=== PATIENT | female | born 1945 | race Caucasian/White ===

== ENCOUNTER 2023-09-25 19:47 | Emergency (ER) | payer MEDICARE, BC, SELFPAY ==
[2023-09-25 19:51] VITALS: BP 130/68
[2023-09-25 20:11] LABS: % Basophils 0.6 % (0-2); % Eosinophils 1.2 % (0-6); % Immature Granulocytes 0.3 % (0-0.5); % Lymphocytes 33.4 % (20.5-51.1); % Monocytes 10.9 % (1.7-9.3); % Neutrophils 53.6 % (42.2-75.2); Absolute Eosinophils 0.1 10^3/uL (0-0.7); Absolute Lymphocytes 2.3 10^3/uL (1.2-3.4); Absolute Monocytes 0.7 10^3/uL (0.1-0.6); Absolute Neutrophils 3.7 10^3/uL (1.4-6.5); Hematocrit 39.8 % (37.0-47.0); Hemoglobin 13.8 g/dL (12.0-16.0); Mean Corp Hgb Conc. 34.7 g/dL (33.0-37.0); Mean Corpuscular Hgb 30.3 pg (27.0-31.0); Mean Corpuscular Volume 87.3 fL (81.0-99.0); Mean Platelet Volume 9.7 fL (7.4-10.4); Nucleated Red Blood Cells % 0 %; Platelet Count 251 10^3/uL (130-400); Red Blood Cell Count 4.56 10^6/uL (4.20-5.40); Red Cell Dist. Width 12.8 % (11.5-14.5); Urine Albumin Trace (Neg - Trace); Urine Bilirubin Negative (Negative); Urine Character Clear (Clear); Urine Color Yellow; Urine Glucose Negative (Negative); Urine Ketone Trace (Negative); Urine Leukocyte 2+ (Negative); Urine Nitrite Positive (Negative); Urine Occult Blood 3+ (Negative); Urine Specific Gravity 1.025 (<1.030); Urine Urobilinogen Negative (Neg - 1+); White Blood Cell Count 6.8 10^3/uL (4.8-10.8)
[2023-09-25 20:18] LABS: Urine Bacteria Many (Negative); Urine Red Blood Cell 0-2 /HPF (0-2)
[2023-09-25 20:37] LABS: ALT (SGPT) 12 U/L (0-35); AST (SGOT) 25 U/L (14-36); Albumin 4.6 g/dl (3.5-5.0); Alkaline Phosphatase 35 U/L (38-126); Blood Urea Nitrogen 24 mg/dl (7-17); Carbon Dioxide 25 mmol/L (22-30); Chloride 103 mmol/L (98-107); Glucose 102 mg/dl (70-99); Potassium 4.5 mmol/L (3.5-5.1); Sodium 137 mmol/L (135-145); Total Bilirubin 2.2 mg/dl (0.2-1.3); Total Protein 7.4 g/dl (6.3-8.2); eGFR 46.33
[2023-09-25 23:06] VITALS: BMI 25.7
--- NOTE | 2023-09-25 23:15 | ED.GENMED ---
History of Present Illness
General
Chief Complaint: Change in Mental Status
Source: patient and family
Time Seen by Provider: 09/25/23 23:08
Travel History
Have you had any contact with someone who has COVID-19?: No
Do you have any symptoms of coronavirus? Fever > 100 degrees, chills, cough, shortness of breath, sore throat, loss of taste or smell, muscle aches, or headache?: No
History of Present Illness
History of Present Illness:
78-year-old female with past medical history of dementia presenting to the emergency department with family who reports that since Monday last week patient has had intermittent episodes of confusion, intermittently has not recognized her
with whom she lives. Family states that they attempted to get a urinalysis done as an outpatient but were unable to do so and were recommended by patient's living facility ([facility]) to come to the emergency department to be further evaluated.
Patient reports she has no concerns at this time. Family states they are most concerned for urinary tract infection given patient's history of similar.
Past History
Past History
ED Past Medical History: Psychiatric and Other (Dementia)
ED Past Surgical History: Other (Thyroid)
Social History
Tobacco: Non-smoker
Alcohol: None
Drug: None
Personal:
Living: assisted living
Review of Systems
Review of Systems
All Other Systems: ROS reviewed and negative except as documented in HPI and ROS
Phy Exam
Physical Exam
Physical Exam:
GENERAL: Alert , in no apparent distress
EYE: conjunctiva clear
NECK: Supple
ENT: o/p clr, mmm.
CARDIAC: Regular rate and rhythm
LUNGS: Clear breath sounds bilaterally, no acute respiratory distress, no wheezes/rales/rhonchi
Abdomen: Soft, nontender, nondistended
NEUROLOGICAL: Alert and oriented to self and place but not year, ambulates with steady gait
SKIN: Warm and dry, skin intact.
MUSCULOSKELETAL: well perfused.
PSYCH: Normal and appropriate interaction.
Scores
Heart Failure Risk
Heart Failure Risk Score: Not Applicable
Heart Score for Chest Pain Patients
STEMI patient?: Not applicable
Withdrawal Assessment of Alcohol
Withdrawal Assessment Completed?: Not applicable
Course
Orders/Labs/Results
Orders:
Orders
09/25/23 19:56
CT Head W/o Iv Contrast Urgent
Comment:
Reason For Exam: altered mental status
09/25/23 20:03
Complete Blood Count/With Diff Urgent
Comprehensive Metabolic Panel Urgent
Urinalysis Reflex To Culture Urgent
Date Specimen was Collected: 09/25/23
Time Specimen was Collected: 19:57
Urine Microscopic Reflex Cult Urgent
Urine Culture Urgent
TWAN Source: U
Specimen Description:
Date Specimen was Collected: 09/25/23
Time Specimen was Collected: 19:57
09/25/23 23:50
Cefuroxime Axetil [Ceftin] 500 mg PO NOW STA
Abnormal Lab Results
09/25/23
20:03
Absolute Monos (auto) 0.7 H 10^3/uL
(0.1-0.6)
Monocytes % 10.9 H %
(1.7-9.3)
BUN 24 H mg/dl
(7-17)
Creatinine 1.2 H mg/dL
(0.6-1.0)
Glucose 102 H mg/dl
(70-99)
Total Bilirubin 2.2 H mg/dl
(0.2-1.3)
Alkaline Phosphatase 35 L U/L
(38-126)
Urine Ketones Trace A
(Negative)
Ur Occult Blood Reflex 3+ A
(Negative)
Urine Nitrite (Reflex) Positive A
(Negative)
Leukocyte Esterase Rfl 2+ A
(Negative)
Urine WBC (Reflex) 11-15 A /HPF
(0-5)
Urine Bacteria (Reflex) Many A
(Negative)
09/25/23 20:03
09/25/23 20:03
Vital Signs
Initial and Last Documented VS:
Initial Vital Signs
Temp Pulse Resp BP Pulse Ox
98.2 F 95 18 130/68 97
09/25/23 19:51 09/25/23 19:51 09/25/23 19:51 09/25/23 19:51 09/25/23 19:51
Last Documented Vital Signs
Temp Pulse Resp BP Pulse Ox
98.2 F 95 18 130/68 97
09/25/23 19:51 09/25/23 19:51 09/25/23 19:51 09/25/23 19:51 09/25/23 19:51
MDM/Problems Addressed
Differential Diagnosis Includes:
Progression of dementia, urinary tract infection, electrolyte
MDM/Problems Addressed:
78-year-old female present emergency department for evaluation of intermittent confusion and reported change in mental status. Patient appears to be at her baseline at present time per family and she is in no acute distress. Vital signs
unremarkable. Labs and urine have been ordered by triage and patient does have nitrite positive urine, 2+ leukocytes and 11-15 WBCs. There is mild CKD. Will treat patient with oral antibiotics. No previous urine cultures done at this facility.
Will prescribe cefuroxime twice daily x 10 days. Patient will follow-up with primary care provider.
Chronic conditions affecting care: Neurological disorder
Acute Exacerbation and/or Progression of Chronic Illness: Neurological disorder
*Pulse Oximetry
Patient hypoxic: no
*Critical Care Note
Total Time (30-74mins, 75-104mins- exclusive of procedures): Not Applicable
ED Attending Note
-
Portions of this chart may have been created with voice recognition software.� Occasional wrong word or��sound alike� substitutions may have occurred due to the inherent limitations of voice recognition software.
Discharge Plan
Departure
Patient Disposition: Home (Routine Discharge)
Date of Disposition: 09/25/23
Time of Disposition: 23:15
Patient with high blood pressure during this ER visit?: No
Discharge Problem:
Acute UTI (urinary tract infection)
Instructions: Urinary Tract Infection, Adult (DC)
Prescriptions:
New
cefuroxime axetil 500 mg tablet
500 mg PO BID Qty: 19 0RF
Referrals:
Seamus Apple MD [Family Provider] -
Interventions
Interventions:
*Risk Screen - Suicide Last Done: 09/25/23 19:51
*General Assessment Last Done: 09/25/23 19:51
*Neglect/Abuse Screening Last Done: 09/25/23 19:51
ED- Fall Risk Assessment Last Done: 09/25/23 23:06
ED- Neurological Assessment Last Done: 09/25/23 23:06
ED Swallowing Screen Last Done: 09/25/23 23:06
Discharge Date and Time
Print Language: AZERI
[2023-09-26] MEDS: CEFTIN 500 MG PO (00:20)
[2023-09-26 00:25] VITALS: BP 122/72
== END 2023-09-26 00:25 | disposition home or self-care (01) ==
LOC: EMR 19:47
PROVIDERS: EMERGENCY PHYSICIAN Student in an Organized Health Care Education/Training Program; FAMILY PHYSICIAN Family Medicine
DX: N39.0 Urinary tract infection, site not specified (principal); F03.90 Unspecified dementia, unspecified severity, without behavioral disturbance, psychotic disturbance, mood disturbance, and anxiety
CPT/HCPCS: 99285; 70450; 80053; 81003; 81015; 85025; 87086; 87088; 87186

== ENCOUNTER 2023-11-05 18:06 | Emergency (ER) | payer MEDICARE, BC, SELFPAY ==
[2023-11-05 18:12] VITALS: BP 120/75
[2023-11-05 18:14] VITALS: BP 120/75
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
[2023-11-05 19:00] VITALS: BP 126/66
[2023-11-05 20:08] LABS: Urine Albumin Negative (Neg - Trace); Urine Bilirubin Negative (Negative); Urine Character Slightly Cloudy (Clear); Urine Color Yellow; Urine Glucose Negative (Negative); Urine Ketone Trace (Negative); Urine Leukocyte Negative (Negative); Urine Nitrite Negative (Negative); Urine Occult Blood 2+ (Negative); Urine Specific Gravity 1.025 (<1.030); Urine Urobilinogen Negative (Neg - 1+)
[2023-11-05 20:21] LABS: Urine Squamous Cell 0-2 /LPF (Few)
[2023-11-05 20:22] LABS: Urine Bacteria Few (Negative); Urine Calcium Oxalate Crystals Present
[2023-11-05 20:23] LABS: Urine White Cell 0-2 /HPF (0-5)
== END 2023-11-05 20:57 | disposition home or self-care (01) ==
LOC: EMR 18:06
PROVIDERS: Physician Assistant; EMERGENCY PHYSICIAN Student in an Organized Health Care Education/Training Program
DX: R31.29 Other microscopic hematuria (principal); F03.93 Unspecified dementia, unspecified severity, with mood disturbance; Z63.0 Problems in relationship with spouse or partner
CPT/HCPCS: 99282; 81003; 81015

== ENCOUNTER → 2023-11-16 10:11 | Outpatient (REF) | payer MEDICARE, BC, SELFPAY ==
[2023-11-16 10:47] LABS: % Basophils 0.5 % (0-2); % Eosinophils 2.1 % (0-6); % Immature Granulocytes 0.2 % (0-0.5); % Lymphocytes 32.5 % (20.5-51.1); % Monocytes 9.7 % (1.7-9.3); Absolute Eosinophils 0.1 10^3/uL (0-0.7); Absolute Lymphocytes 1.9 10^3/uL (1.2-3.4); Absolute Monocytes 0.6 10^3/uL (0.1-0.6); Absolute Neutrophils 3.2 10^3/uL (1.4-6.5); Hematocrit 38.7 % (37.0-47.0); Hemoglobin 13.2 g/dL (12.0-16.0); Mean Corp Hgb Conc. 34.1 g/dL (33.0-37.0); Mean Corpuscular Hgb 30.5 pg (27.0-31.0); Mean Corpuscular Volume 89.4 fL (81.0-99.0); Mean Platelet Volume 10.4 fL (7.4-10.4); Nucleated Red Blood Cells % 0 %; Platelet Count 215 10^3/uL (130-400); Red Blood Cell Count 4.33 10^6/uL (4.20-5.40); Red Cell Dist. Width 12.6 % (11.5-14.5); White Blood Cell Count 5.8 10^3/uL (4.8-10.8)
[2023-11-16 10:49] LABS: Urine Albumin Negative (Neg - Trace); Urine Bilirubin Negative (Negative); Urine Character Clear (Clear); Urine Color Yellow; Urine Glucose Negative (Negative); Urine Ketone Negative (Negative); Urine Leukocyte Trace (Negative); Urine Nitrite Negative (Negative); Urine Occult Blood 2+ (Negative); Urine Specific Gravity 1.025 (<1.030); Urine Urobilinogen Negative (Neg - 1+)
[2023-11-16 11:28] LABS: Urine Mucus Few
[2023-11-16 11:29] LABS: Urine Calcium Oxalate Crystals Seen; Urine Red Blood Cell 0-2 /HPF (0-2)
[2023-11-16 11:53] LABS: ALT (SGPT) 10 U/L (0-35); AST (SGOT) 21 U/L (14-36); Albumin 3.8 g/dl (3.5-5.0); Alkaline Phosphatase 32 U/L (38-126); Blood Urea Nitrogen 18 mg/dl (7-17); Calcium 9.2 mg/dl (8.4-10.2); Carbon Dioxide 30 mmol/L (22-30); Chloride 104 mmol/L (98-107); Glucose 93 mg/dl (70-99); HDL Cholesterol 55 mg/dl; LDL Cholesterol, Calculated 111 mg/dl; Potassium 4.4 mmol/L (3.5-5.1); Sodium 141 mmol/L (135-145); Total Bilirubin 1.1 mg/dl (0.2-1.3); Total Cholesterol 184 mg/dl (50-199); Total Protein 6.4 g/dl (6.3-8.2); Triglyceride 91 mg/dl (10-149); Very Low Density Lipoprotein 18 mg/dl (0-30); eGFR > 60.00
[2023-11-16 12:11] LABS: Free T4 0.74 ng/dl (0.78-2.19); Vitamin D, 25-OH*** 44.2 ng/mL (30-80)
[2023-11-16 12:24] LABS: TSH 2.22 uIU/ml (0.47-4.68)
[2023-11-16 13:39] LABS: Glycohemoglobin (HgbA1c) 5.9 % (4.0-5.6)
== END ==
LOC: OLABMERCHI 10:11
PROVIDERS: ATTENDING PHYSICIAN Nurse Practitioner Gerontology; FAMILY PHYSICIAN Hospitalist
DX: E55.9 Vitamin D deficiency, unspecified (principal); N39.0 Urinary tract infection, site not specified; E03.9 Hypothyroidism, unspecified; E11.9 Type 2 diabetes mellitus without complications; E78.5 Hyperlipidemia, unspecified; D64.9 Anemia, unspecified
CPT/HCPCS: 36415; 80053; 80061; 81003; 81015; 82306; 83036; 84439; 84443; 85025; 87086

== ENCOUNTER → 2024-08-06 16:30 | Outpatient (REF) | payer MEDICARE, BC, SELFPAY ==
[2024-08-07 13:38] LABS: Urine Albumin 1+ (Neg - Trace); Urine Bilirubin Negative (Negative); Urine Character Slightly Cloudy (Clear); Urine Color Yellow; Urine Glucose Negative (Negative); Urine Ketone Negative (Negative); Urine Leukocyte 3+ (Negative); Urine Nitrite Positive (Negative); Urine Occult Blood 2+ (Negative); Urine Specific Gravity 1.025 (<1.030); Urine Urobilinogen Negative (Neg - 1+)
[2024-08-07 14:11] LABS: Urine Squamous Cell 0-2 /LPF (Few)
[2024-08-07 14:12] LABS: Urine Bacteria Many (Negative); Urine Calcium Oxalate Crystals Present; Urine Red Blood Cell 0-2 /HPF (0-2)
== END ==
LOC: OLABSOL 16:30
DX: N39.0 Urinary tract infection, site not specified (principal)
CPT/HCPCS: 81003; 81015; 87077; 87086

== ENCOUNTER → 2024-08-07 12:00 | Outpatient (REF) | payer MEDICARE, BC, SELFPAY ==
[2024-08-07 12:32] LABS: % Basophils 0.4 % (0-2); % Immature Granulocytes 0.2 % (0-0.5); % Lymphocytes 38.2 % (20.5-51.1); % Monocytes 9.1 % (1.7-9.3); % Neutrophils 50.1 % (42.2-75.2); Absolute Eosinophils 0.1 10^3/uL (0-0.7); Absolute Lymphocytes 1.9 10^3/uL (1.2-3.4); Absolute Monocytes 0.5 10^3/uL (0.1-0.6); Absolute Neutrophils 2.5 10^3/uL (1.4-6.5); Hematocrit 39.2 % (37.0-47.0); Hemoglobin 13.1 g/dL (12.0-16.0); Mean Corp Hgb Conc. 33.4 g/dL (33.0-37.0); Mean Corpuscular Volume 92.7 fL (81.0-99.0); Mean Platelet Volume 10.4 fL (7.4-10.4); Nucleated Red Blood Cells % 0 %; Platelet Count 225 10^3/uL (130-400); Red Blood Cell Count 4.23 10^6/uL (4.20-5.40); Red Cell Dist. Width 12.7 % (11.5-14.5)
[2024-08-07 12:41] LABS: ALT (SGPT) 10 U/L (0-35); AST (SGOT) 20 U/L (14-36); Albumin 4.2 g/dl (3.5-5.0); Alkaline Phosphatase 30 U/L (38-126); Blood Urea Nitrogen 15 mg/dl (7-17); Calcium 9.4 mg/dl (8.4-10.2); Carbon Dioxide 28 mmol/L (22-30); Chloride 104 mmol/L (98-107); Glucose 99 mg/dl (70-99); HDL Cholesterol 45 mg/dl; LDL Cholesterol, Calculated 112 mg/dl; Potassium 4.6 mmol/L (3.5-5.1); Sodium 140 mmol/L (135-145); Total Bilirubin 1.7 mg/dl (0.2-1.3); Total Cholesterol 179 mg/dl (50-199); Total Protein 6.7 g/dl (6.3-8.2); Triglyceride 114 mg/dl (10-149); Very Low Density Lipoprotein 22 mg/dl (0-30); eGFR > 60.00
== END ==
LOC: OLABSOL 12:00
DX: D64.9 Anemia, unspecified (principal); E78.5 Hyperlipidemia, unspecified; R94.5 Abnormal results of liver function studies
CPT/HCPCS: 36415; 80053; 80061; 85025

== ENCOUNTER → 2024-11-19 15:00 | Outpatient (REF) | payer MEDICARE, BC, SELFPAY ==
[2024-11-20 11:24] LABS: Urine Albumin Negative (Neg - Trace); Urine Bilirubin Negative (Negative); Urine Character Clear (Clear); Urine Color Yellow; Urine Glucose Negative (Negative); Urine Ketone Negative (Negative); Urine Leukocyte Negative (Negative); Urine Nitrite Negative (Negative); Urine Occult Blood Negative (Negative); Urine Specific Gravity 1.005 (<1.030); Urine Urobilinogen Negative (Neg - 1+)
== END ==
LOC: OLABSOL 15:00
PROVIDERS: ATTENDING PHYSICIAN Hospitalist
DX: N39.0 Urinary tract infection, site not specified (principal)
CPT/HCPCS: 81003; 87086

== ENCOUNTER → 2025-03-04 11:57 | Outpatient (REF) | payer MEDICARE, BC, SELFPAY ==
[2025-03-04 17:09] LABS: Urine Character Cloudy (Clear)
[2025-03-04 18:17] LABS: Urine Red Blood Cell 0-2 /HPF (0-2); Urine White Cell 16-20 /HPF (0-5)
== END ==
LOC: OLABSOL 11:57
PROVIDERS: ATTENDING PHYSICIAN Hospitalist
DX: N39.0 Urinary tract infection, site not specified (principal)
CPT/HCPCS: 81003; 81015; 87077; 87086; 87186

== ENCOUNTER 2025-03-20 13:26 | Emergency (ER) | payer MEDICARE, BC, SELFPAY ==
[2025-03-20 13:31] VITALS: BP 100/62
[2025-03-20 13:33] VITALS: BP 100/62
[2025-03-20 13:59] LABS: Hematocrit 37.9 % (37.0-47.0); Hemoglobin 13.1 g/dL (12.0-16.0); Mean Corp Hgb Conc. 34.6 g/dL (33.0-37.0); Mean Corpuscular Volume 87.9 fL (81.0-99.0); Nucleated Red Blood Cells % 0 %; Platelet Count 236 10^3/uL (130-400); Red Cell Dist. Width 12.3 % (11.5-14.5); Urine Character Clear (Clear)
[2025-03-20 14:00] VITALS: BP 102/60
[2025-03-20 14:05] LABS: ALT (SGPT) 11 U/L (0-35); AST (SGOT) 18 U/L (14-36); Albumin 4.3 g/dl (3.5-5.0); Alkaline Phosphatase 28 U/L (38-126); Blood Urea Nitrogen 15 mg/dl (7-17); Calcium 9.5 mg/dl (8.4-10.2); Carbon Dioxide 24 mmol/L (22-30); Chloride 107 mmol/L (98-107); Glucose 103 mg/dl (70-99); Lipase 146 U/L (23-300); Potassium 4.1 mmol/L (3.5-5.1); Sodium 140 mmol/L (135-145); Total Protein 6.9 g/dl (6.3-8.2); eGFR 57.31
[2025-03-20 14:34] LABS: Urine Squamous Cell 0-2 /LPF (Few); Urine Urothelial Cell 0-2 /LPF (FEW)
[2025-03-20 15:00] VITALS: BP 115/90
[2025-03-20 15:18] LABS: Troponin I < 0.012 ng/ml
--- NOTE | 2025-03-20 17:15 | ED.GENMED ---
History of Present Illness
General
Chief Complaint: Abdominal Pain
Source: family and shelter
Exam Limitations: dementia
Time Seen by Provider: 03/20/25 14:01
Nursing documentation reviewed up to this point in time: agreed with
History of Present Illness
History of Present Illness:
Patient is a 79-year-old female with history of dementia who presents to the emergency department from nursing facility with concerns of abdominal pain. Patient has history of dementia and is unable to contribute to history. According to patient's
daughter, she is currently being treated for UTI with ciprofloxacin�and believes she has been taking it for just under 1 week. Today, at her nursing facility, she was found to be grabbing her lower abdomen and appeared more agitated.
Her daughter states she is at her baseline mental status.
There has been no known recent fever. She has not been complaining of any chest pain. No obvious respiratory distress. No vomiting. No cough.
Patient's daughter states that she has been complaining of abdominal pain for many months.
Past History
Past History
ED Past Medical History: Psychiatric and Other (Dementia)
ED Past Surgical History: Other (Thyroid)
Social History
Tobacco: Non-smoker
Alcohol: None
Drug: None
Personal:
Living: assisted living
Review of Systems
Review of Systems
Allergies reviewed?: Yes
All Other Systems: ROS reviewed and negative except as documented in HPI and ROS
Phy Exam
Physical Exam
Physical Exam:
Vitals: Patient's vital signs are stable. Afebrile
General: Patient is anxious and tearful.
Skin: Warm and dry, no rashes or lesions
Head: Normocephalic, atraumatic
Eyes: Sclera nonicteric.
Throat: Protecting airway
Neck: Normal ROM, no cervical spine tenderness, no meningismus
Cardiac: Regular rate and rhythm, no murmurs.
Pulm: Normal respiratory effort. Lungs clear
Abdomen: Abdomen soft. Mild tenderness in lower abdomen. No rebound tenderness or guarding.
Extremities: No evidence of cyanosis or edema
Neuro: Alert and oriented x 1 (baseline). No gross deficits
Psychiatric: Tearful.
Course
Orders/Labs/Results
Orders:
Orders
03/20/25 13:42
Complete Blood Count/With Diff Urgent
Comprehensive Metabolic Panel Urgent
Lipase Urgent
Urinalysis Reflex To Culture Urgent
Date Specimen was Collected: 03/20/25
Time Specimen was Collected: 13:39
Urine Microscopic Reflex Cult Urgent
Urine Culture Urgent
TWAN Source: U
Specimen Description:
Date Specimen was Collected: 03/20/25
Time Specimen was Collected: 13:39
03/20/25 14:41
Electrocardiogram (*1) Urgent
Reason for Study: Abdominal Pain
CT Abd/pelvis W Iv Cont Urgent
Comment: currently tx for UTI
Reason For Exam: lower abdominal pain
EKG- Treatment ONCE
03/20/25 14:48
Troponin I Urgent
03/20/25 17:25
CefTRIAXone [Rocephin] 1,000 mg IV NOW STA
03/20/25 17:41
Add On - Microbiology Urgent
Tests Added?: urine culture
Abnormal Lab Results
03/20/25
13:42
Glucose 103 H mg/dl
(70-99)
Alkaline Phosphatase 28 L U/L
(38-126)
Ur Occult Blood Reflex 2+ A
(Negative)
Leukocyte Esterase Rfl 1+ A
(Negative)
Urine RBC 3-6 A /HPF
(0-2)
Urine WBC (Reflex) 11-15 A /HPF
(0-5)
Urine Bacteria (Reflex) Moderate A
(Negative)
Urine Albumin (Reflex) 1+ A
(Neg - Trace)
03/20/25 13:42
10/23/25 13:42
Vital Signs
Initial and Last Documented VS:
Initial Vital Signs
Temp Pulse Resp BP Pulse Ox
97.6 F 70 16 100/62 99
03/20/25 13:31 03/20/25 13:31 03/20/25 13:31 03/20/25 13:31 03/20/25 13:31
Last Documented Vital Signs
Temp Pulse Resp BP Pulse Ox
97.6 F 68 16 120/58 95
03/20/25 13:31 03/20/25 17:35 03/20/25 17:35 03/20/25 17:35 03/20/25 17:35
MDM/Problems Addressed
Differential Diagnosis Includes:
Not limited to: Cystitis, pyelonephritis, renal colic, diverticulitis, appendicitis, constipation, etc.
MDM/Problems Addressed:
79-year-old female with a history of dementia presents from nursing facility with concerns for abdominal pain. She recently completed a course of ciprofloxacin for a urinary tract infection. On arrival, vital signs are stable and she is afebrile. On
exam, the patient appears anxious and tearful but in no acute distress.
She is alert and oriented to person only, which is her baseline per family. Abdomen is soft with mild tenderness in the lower abdomen, without rebound or guarding. Cardiac and pulmonary exams are unremarkable. No focal neurologic deficits.
Laboratory evaluation is unremarkable with no leukocytosis. Urinalysis and CT abdomen/pelvis demonstrate findings consistent with acute cystitis, suggesting persistent or recurrent urinary infection. The patient�s daughter, who arrived during the
visit, confirms that the patient is at her cognitive baseline.
Given the absence of systemic symptoms, hemodynamic stability, and reassuring exam, there is no indication for admission at this time. The patient was treated with a dose of IV Rocephin in the ED and will be discharged with a course of oral Keflex.
Advised follow-up with repeat urinalysis after completing antibiotics and provided strict return precautions for fever, worsening pain, or confusion. The patient�s daughter will transport her back to the nursing facility, and both are comfortable
with the discharge plan.
Chronic conditions affecting care:
Dementia
Acute Exacerbation and/or Progression of Chronic Illness:
N/A
*Radiology
Radiology exam reviewed: radiology read reviewed
*Pulse Oximetry
SaO2: 99
Oxygen Mode of Delivery: Room air
Patient hypoxic: no
*EKG
Interpreted by ED Provider?: Yes
EKG Intrepretation Date: 03/20/25
Interpretation: abnormal
Comparison EKG: no changes
Heart Rate: 70
Rate: normal
Rhythm: sinus
[place]: normal axis
Interval: normal QT interval
QRS Pattern: normal QRS
Ischemia: non-specific ST changes
*Squad Sergeant Interpretation
Rate: Squad Sergeant- N/A
*Critical Care Note
Total Time (30-74mins, 75-104mins- exclusive of procedures): Not Applicable
Data Reviewed
Review of Other/Old Records Reveals: Testing (Reviewed recent urine culture from 03/04/2025)
ED Attending Note
-
Portions of this chart may have been created with voice recognition software.� Occasional wrong word or��sound alike� substitutions may have occurred due to the inherent limitations of voice recognition software.
Discharge Plan
Departure
Patient Disposition: Home (Routine Discharge)
Date of Disposition: 03/20/25
Time of Disposition: 17:33
Patient with high blood pressure during this ER visit?: No
Condition: Good
Discharge Problem:
Acute UTI
Instructions: Urinary tract infection in adults - ED (DC)
Prescriptions:
New
cephalexin 500 mg capsule
500 mg PO BID 5 Days Qty: 10 0RF
No Action
cefuroxime axetil 500 mg tablet
500 mg PO BID Qty: 19 0RF
Referrals:
UNKNOWN - PT NOT,INTERVIEWE [Family Provider]
Activity Restrictions/Additional Instructions:
RETURN TO THE EMERGENCY DEPARTMENT ANY FEVER, CHILLS, VOMITING, BACK/ABDOMINAL PAIN, INABILITY TO URINATE, CHANGES IN MENTAL STATUS, WORSENING IN CURRENT SYMPTOMS, OR ANY OTHER CONCERNS
- As discussed�your urinalysis and CT scan show evidence of a UTI. You were given a dose of IV Rocephin and started on a course of Keflex. Please take this twice a day for the next 5 days�you can start this tomorrow.
- Stay well-hydrated.
- Please have a repeat urinalysis performed at the end of this antibiotic course to ensure it resolves.
- Follow-up with primary care for further evaluation/management and to ensure that your symptoms are improving
Monitor your symptoms closely and return to the emergency department with any acute worsening/new symptoms or any other concerns
Interventions
Interventions:
*Risk Screen - Suicide Last Done: 03/20/25 13:38
*General Assessment Last Done: 03/20/25 13:38
*Neglect/Abuse Screening Last Done: 03/20/25 13:38
*ED- Fall Risk Assessment Last Done: 03/20/25 13:38
*ED COVID-19 Vaccine History Last Done: 03/20/25 13:38
*ED Influenza Vaccine History Last Done: 03/20/25 13:38
*Nursing Disposition Last Done: 03/20/25 17:35
GK-Omwkmc-Bsqparqymk Assessment Last Done: 03/20/25 13:38
Discharge Date and Time
Discharge Date/Time: 03/20/25 17:46
Print Language: URUGUAYAN
[2025-03-20] MEDS: ROCEPHIN 1000 MG IV (17:29)
[2025-03-20 17:35] VITALS: BP 120/58
== END 2025-03-20 17:46 | disposition home or self-care (01) ==
LOC: EMR 13:26
PROVIDERS: Physician Assistant; EMERGENCY PHYSICIAN Student in an Organized Health Care Education/Training Program
DX: N39.0 Urinary tract infection, site not specified (principal); F03.90 Unspecified dementia, unspecified severity, without behavioral disturbance, psychotic disturbance, mood disturbance, and anxiety
CPT/HCPCS: 99284; 96374; 74177; 80053; 81003; 81015; 83690; 84484; 85025; 87086; 93005; Q9967